=== PATIENT | male | born 1990 | race Caucasian/White ===

== ENCOUNTER 2020-12-14 12:47 | Inpatient (IN) | payer MEDICARE, MEDICAID ==
[~2020-12-14] VITALS: Ht 188 cm; Wt 114.5 kg
[2020-12-14 14:08] VITALS: BP 134/88
[2020-12-14] MEDS ORDERED: lithium PO (14:17)
[2020-12-14 15:19] LABS: COVID AG,FIA SOURCE NASAL SWAB
[2020-12-14] MEDS ORDERED: ZOLPIDEM TARTRATE 10 MG TABLET PO PRN (16:00)
[2020-12-14] MEDS ORDERED: LITH300C3 PO (16:01)
[2020-12-14 16:50] VITALS: BP 131/81
[2020-12-14] MEDS: LORazepam 2 MG TABLET PO PRN (21:08)
[2020-12-14] MEDS: QUEtiapine FUMARATE 100 MG TABLET PO PRN (22:00)
[2020-12-15 02:20] VITALS: BP 126/76
[2020-12-15 07:38] LABS: BASOPHILS % (AUTO) 1.2 % (0.0-2.0); EOSINOPHILS % (AUTO) 1.2 % (1.0-6.0); HEMATOCRIT 47.5 % (41-53); HEMOGLOBIN 15.1 g/dL (13.5-17.5); LYMPHOCYTES # (AUTO) 2.1 K/uL (1.0-4.8); LYMPHOCYTES % (AUTO) 27.5 % (22.0-44.0); MEAN CORPUSCULAR HEMOGLOBIN 28.5 pg (26.0-34.0); MEAN CORPUSCULAR HGB CONC 31.8 G/dL (31.0-37.0); MEAN CORPUSCULAR VOLUME 90 fL (80-100); MONOCYTES # (AUTO) 0.7 K/uL (0.1-1.0); MONOCYTES % (AUTO) 8.5 % (2.0-9.0); NEUTROPHILS # (AUTO) 4.8 K/uL (1.8-7.7); NEUTROPHILS % (AUTO) 61.6 % (40.0-70.0); PLATELET COUNT (AUTO) 187 K/uL (150-450); RED BLOOD CELL COUNT(AUTO) 5.31 MIL/uL (4.50-5.90); RED CELL DISTRIBUTION WIDTH 15.6 % (11.5-14.5)
[2020-12-15 07:48] LABS: APPEARANCE,URINE CLEAR (CLEAR); BILIRUBIN,URINE NEGATIVE (NEGATIVE); GLUCOSE, URINE (UA) NEGATIVE (NEGATIVE); KETONES,URINE NEGATIVE (NEGATIVE); LEUKOCYTE ESTERASE ,URINE NEGATIVE (NEGATIVE); NITRATE,URINE NEGATIVE (NEGATIVE); OCCULT BLOOD,URINE NEGATIVE (NEGATIVE); PH,URINE 6.5 (5.0-8.0); PROTEIN,URINE NEGATIVE (NEGATIVE)
[2020-12-15 07:54] LABS: AMPHET/METH SCREEN,URINE NEGATIVE (NEGATIVE); BARBITURATE SCREEN, URINE NEGATIVE (NEGATIVE); BENZODIAZEPINES SCREEN,URINE NEGATIVE (NEGATIVE); CANNABINOID SCREEN,URINE POSITIVE (NEGATIVE); COCAINE SCREEN,URINE NEGATIVE (NEGATIVE); METHADONE SCREEN, URINE NEGATIVE (NEGATIVE); OPIATE SCREEN,URINE NEGATIVE (NEGATIVE)
[2020-12-15 07:57] LABS: PHENCYCLIDINE SCREEN,URINE NEGATIVE (NEGATIVE)
[2020-12-15 07:58] LABS: ALANINE AMINOTRANSFERASE 32 U/L (12-78); ALBUMIN 3.7 g/dL (3.4-5.0); ALKALINE PHOSPHATASE 118 U/L (46-116); ANION GAP 5 mmol/L (8-16); ASPARTATE AMINOTRANSFERASE 22 U/L (15-37); BILIRUBIN,TOTAL 0.7 mg/dL (0.1-1.0); CALCIUM, TOTAL 8.9 mg/dL (8.8-10.5); CARBON DIOXIDE 27 mmol/L (22-29); CHLORIDE 106 mmol/L (98-107); CREATININE 0.69 mg/dL (0.60-1.30); FREE T4 (FREE THYROXINE) 1.02 ng/dL (0.76-1.46); GLOMERULAR FILTR. RATE CALC > 60 mL/min (>60); GLUCOSE,RANDOM 87 mg/dL (70-110); POTASSIUM 3.6 mmol/L (3.5-5.1); SODIUM SERUM 138 mmol/L (136-145); THYROID STIMULATING HORMONE 1.21 uIU/mL (0.36-3.74); TOTAL PROTEIN, SERUM 7.6 g/dL (6.4-8.2); UREA NITROGEN, BLOOD 10 mg/dL (7-18)
[2020-12-15 08:00] LABS: HEMOGLOBIN A1C 5.4 % (3.8-5.6)
[2020-12-15 08:14] VITALS: BP 130/80
[2020-12-15] MEDS ORDERED: MAG HYDROX/AL HYDROX/SIMETH ES 30 ML SUSPENSION UDCUP PO PRN (08:45)
[2020-12-15] MEDS ORDERED: ONDANSETRON HCL 4 MG TABLET PO PRN (08:45)
[2020-12-15] MEDS ORDERED: NICOTINE 14 MG/24 HOUR PATCH TD PRN (08:45)
[2020-12-15] MEDS ORDERED: LOPERAMIDE HCL 2 MG CAPSULE PO PRN (08:45)
[2020-12-15] MEDS ORDERED: IBUPROFEN 400 MG TABLET PO PRN (08:45)
[2020-12-15] MEDS ORDERED: ALBUTEROL SULFATE HFA 90 MCG/PUFF 8 GM INHALER IH PRN (08:45)
[2020-12-15] MEDS ORDERED: GuaiFENesin/D-METHORPHAN [SUGAR-FREE] 200-20MG/10 ML SYRUP UDCUP PO PRN (08:45)
[2020-12-15] MEDS ORDERED: DOCUSATE SODIUM 100 MG CAPSULE PO PRN (08:45)
[2020-12-15] MEDS ORDERED: ACETAMINOPHEN 325 MG TABLET PO PRN (08:45)
[2020-12-15] MEDS ORDERED: MAGNESIUM HYDROXIDE SUSPENSION 30 ML UDCUP PO PRN (08:45)
[2020-12-15] MEDS ORDERED: CloNIDine HCL 0.1 MG TABLET PO PRN (08:45)
[2020-12-15] MEDS ORDERED: PETROLATUM,WHITE 28 GM JELLY TP PRN (08:45)
[2020-12-15] MEDS: LORazepam 2 MG TABLET PO PRN (09:19)
[2020-12-15] MEDS: OLANZapine 5 MG TABLET PO SCH ×2 (10:32→20:28)
[2020-12-15] MEDS ORDERED: ChlorproMAZINE HCL 50 MG/2 ML AMP IM ONE (13:15)
[2020-12-15] MEDS ORDERED: LORazepam 2 MG/ML VIAL IM ONE (13:15)
[2020-12-15] MEDS ORDERED: DiphenhydrAMINE HCL 50 MG/ML VIAL IM ONE (13:15)
[2020-12-15] MEDS: QUEtiapine FUMARATE 100 MG TABLET PO PRN (13:51)
[2020-12-16 05:20] VITALS: BP 124/83
[2020-12-16] MEDS: LORazepam 2 MG TABLET PO PRN ×2 (05:27→11:00)
[2020-12-16] MEDS: QUEtiapine FUMARATE 100 MG TABLET PO PRN ×2 (06:38→11:00)
[2020-12-16] MEDS ORDERED: DiphenhydrAMINE HCL 50 MG/ML VIAL IM ONE ×3 (07:45→13:15)
[2020-12-16] MEDS ORDERED: ChlorproMAZINE HCL 50 MG/2 ML AMP IM ONE ×3 (07:45→13:15)
[2020-12-16] MEDS ORDERED: LORazepam 2 MG/ML VIAL ONE ×2 (07:45→09:59)
[2020-12-16] MEDS ORDERED: LORazepam 2 MG/ML VIAL IM ONE ×3 (07:45→13:15)
[2020-12-16] MEDS ORDERED: ChlorproMAZINE HCL 50 MG/2 ML AMP ONE ×2 (07:46→09:59)
[2020-12-16] MEDS ORDERED: DiphenhydrAMINE HCL 50 MG/ML VIAL ONE ×2 (07:46→09:59)
[2020-12-16] MEDS: OLANZapine 5 MG TABLET PO SCH (08:48)
[2020-12-16 10:20] VITALS: BP 160/91
[2020-12-16 10:42] VITALS: BP 160/91
[2020-12-16] MEDS ORDERED: OLAN10TA74 PO (14:33)
[2020-12-16] MEDS ORDERED: OLANZapine 10 MG TABLET PO SCH (21:00)
[2020-12-17 08:06] LABS: HIV 1-2 SCREEN 4TH GEN W/RFLX Non Reactive (Non Reactive)
== END 2020-12-16 15:10 | disposition home or self-care (01) | DRG 885 ==
LOC: B2X 16:03 → B3A 12-15 16:09
DX: F20.0 Paranoid schizophrenia (principal); F12.10 Cannabis abuse, uncomplicated; F10.10 Alcohol abuse, uncomplicated; F15.10 Other stimulant abuse, uncomplicated; R00.0 Tachycardia, unspecified; Z91.5 Personal history of self-harm; Z20.822 Contact with and (suspected) exposure to COVID-19
CPT/HCPCS: 80053; 80074; 80307; 81003; 83036; 84439; 84443; 85025; 86592; 87389; J1200; J2060; J3230